=== PATIENT | male | born 1980 | race African-American/Black ===

== ENCOUNTER 2016-09-26 08:30 | Emergency (ER) | payer OTHER ==
[~2016-09-26] VITALS: Ht 170.2 cm; Wt 104.0 kg
[2016-09-26 08:33] VITALS: Ht 170.2 cm; Wt 104.0 kg
[2016-09-26] MEDS ORDERED: KETOROLAC 30 MG INJ IM STA (08:46)
--- NOTE | 2016-09-26 08:54 | ERD ---
ER Documentation Chief Complaint Date/Time DATE: 09/26/16 TIME: 08:47 Chief Complaint LEFT 3RD FINGER DEFORMITY AND PAIN S/P FALL TODAY, NO KO HPI This a 36-year-old male who presents the emergency department today complaining of left finger pain after slipping and falling in the shower earlier this morning. States he taken Tylenol for pain. Denies any previous trauma, fevers or chills. ROS All systems reviewed and are negative except as per history of present illness. Allergies Allergies: Coded Allergies: No Known Allergy (Unverified , 09/26/16) Physical Exam Vitals Vital Signs Date Time Temp Pulse Resp B/P Pulse Ox O2 Delivery O2 Flow Rate FiO2 09/26/16 08:33 98.0 124 18 157/96 98 Physical Exam Const: No acute distress Head: Atraumatic Eyes: Normal Conjunctiva ENT: Normal External Ears, Nose and Mouth. Neck: Full range of motion..~ No meningismus. Resp: Clear to auscultation bilaterally Cardio: Regular rate and rhythm, no murmurs Skin: No petechiae or rashes MSk: Left hand third finger at 90 angle to the left. Pulses 2+. Good cap refill Neur: Awake and alert Psych: Normal Mood and Affect Results 24 hrs Current Medications Medications (Trade) Dose Ordered Sig/Ariel Route PRN Reason Start Time Stop Time Status Last Admin Dose Admin Ketorolac Tromethamine (Toradol) 30 mg ONCE STAT IM 09/26/16 08:46 09/26/16 08:48 DC 09/26/16 09:14 Lidocaine (Xylocaine 2% (Mdv) 20 ml) 20 ml ONCE ONCE INJ 09/26/16 09:30 09/26/16 09:31 DC DIAGNOSTIC IMAGING REPORT Patient: HARLAN HAWK : 1980 Age: 36 Sex: M MR #: [id number] DOS: 09/26/16 0000 Ordering MD: АННА THOMPSON PA-C Location: [facility] Room/Bed: PROCEDURE: XR Hand. CLINICAL INDICATION: Pain TECHNIQUE: AP, oblique and lateral views of the left hand were obtained. COMPARISON: No prior studies are available for comparison. FINDINGS: The left third digit PIP joint is completely dislocated with soft tissue swelling. No additional fractures are identified. IMPRESSION: Left third digit PIP joint completely dislocated with soft tissue swelling. No additional fractures. RPTAT: QQ .Hortencia Barnes MD, MD Date Time Electronically viewed and signed by .Hortencia Barnes MD, MD on 09/26/2016 09:38 .F/ CC: АННА THOMPSON PA-C DIAGNOSTIC IMAGING REPORT Patient: HARLAN HAWK : 1980 Age: 36 Sex: M MR #: [id number] DOS: 09/26/16 0000 Ordering MD: АННА THOMPSON PA-C Location: [facility] Room/Bed: PROCEDURE: XR Hand. CLINICAL INDICATION: Pain . Post reduction. TECHNIQUE: AP, oblique and lateral views of the left hand were obtained. COMPARISON: Plain films from the same day FINDINGS: The left third digit PIP joint has been successfully reduced. No new fractures. Alignment is anatomic. Soft tissue swelling of the third digit is noted. IMPRESSION: Successful reduction of the left third digit PIP joint dislocation. No new fractures. Anatomic alignment. Soft tissue swelling of the third digit is present. RPTAT: QQ .Hortencia Barnes MD, MD Date Time Electronically viewed and signed by .Hortencia Barnes MD, MD on 09/26/2016 09:40 .F/ CC: АННА THOMPSON PA-C Procedures/MDM Is a 36-year-old male who presents the emergency department today for left finger injury. On physical exam patient had his third middle finger at the PIP joint at a 90 angle. I did obtain images Per the radiology report images of the left third finger show a third digit PIP joint completely dislocated with soft tissue swelling. There is no additional fracture. Postreduction films show successful reduction of the left third digit PIP joint dislocation. There are no new fractures. Alignment is anatomic. Soft tissue swelling of third digit is noted. I did give the patient a digital block to reduce the patient's finger. Wound was cleaned in the usual sterile fashion. 3 cc of lidocaine were injected into the patient's third finger. Finger was reduced. Patient tolerated the procedure well and there were no complications. Patient took Tylenol prior to arrival. Patient was given Toradol here in the emergency Patient be given a prescription for Thompson, Naprosyn and Tylenol for home. He was placed in a splint prior to discharge. Once finger was reduced, he was distal neurovascularly intact pre-and post splint application. At this time the patient is stable for discharge and outpatient management. Patient should follow up with their PCP in the next 1-2 days. They may return to the emergency department sooner for any persistent or worsening of symptoms. Patient understood and agreed with the plan. АННА THOMPSON PA-C Sep 26, 2016 08:54
[2016-09-26] MEDS ORDERED: LIDOCAINE 2% (MDV) 20 ML INJ INJ ONE (09:30)
--- NOTE | 2016-09-26 09:39 | RADRPT ---
PROCEDURE: XR Hand. CLINICAL INDICATION: Pain TECHNIQUE: AP, oblique and lateral views of the left hand were obtained. COMPARISON: No prior studies are available for comparison. FINDINGS: The left third digit PIP joint is completely dislocated with soft tissue swelling. No additional fractures are identified. IMPRESSION: Left third digit PIP joint completely dislocated with soft tissue swelling. No additional fractures . RPTAT: QQ .Hortencia Barnes MD, MD Date Time Electronically viewed and signed by .Hortencia Barnes MD, on 09/26/2016 09:38 .F/
--- NOTE | 2016-09-26 09:40 | RADRPT ---
PROCEDURE: XR Hand. CLINICAL INDICATION: Pain . Post reduction. TECHNIQUE: AP, oblique and lateral views of the left hand were obtained. COMPARISON: Plain films from the same day FINDINGS: The left third digit PIP joint has been successfully reduced. No new fractures. Alignment is anatom ic. Soft tissue swelling of the third digit is noted. IMPRESSION: Successful reduction of the left third digit PIP joint dislocation. No new fractures. Anatomic ali gnment. Soft tissue swelling of the third digit is present. RPTAT: QQ .Hortencia Barnes MD, MD Date Time Electronically viewed and signed by .Hortencia Barnes MD, on 09/26/2016 09:40 .F/
[2016-09-26] MEDS ORDERED: HYDR-906 PO (09:53)
[2016-09-26] MEDS ORDERED: NAPR-260 PO (09:54)
[2016-09-26 10:25] VITALS: BP 113/65; PULSE 65; RESP 18; TEMP 97.9
== END 2016-09-26 10:26 | disposition home or self-care (01) ==
LOC: FTE 08:30
DX: S69.92XA Unspecified injury of left wrist, hand and finger(s), initial encounter (principal); W18.2XXA Fall in (into) shower or empty bathtub, initial encounter; Y92.9 Unspecified place or not applicable
CPT/HCPCS: 73140; J1885; Z7610; 96372